=== PATIENT | female | born 1980 | race Caucasian/White ===

== ENCOUNTER 2016-10-24 06:41 | Emergency (ER) | payer OTHER | END 2016-10-24 07:50 | disposition home or self-care (01) | LOC: ER 06:41 | DX: A60.04 Herpesviral vulvovaginitis (principal); I10 Essential (primary) hypertension; F17.210 Nicotine dependence, cigarettes, uncomplicated; Z90.49 Acquired absence of other specified parts of digestive tract; Z88.5 Allergy status to narcotic agent ==